=== PATIENT | female | born 1985 ===

== ENCOUNTER 2020-04-12 10:00 | Outpatient (CLI) | payer MEDICAID | END 2020-04-12 10:01 | disposition home or self-care (01) | LOC: SLR 10:00 | PROVIDERS: ATTEND Internal Medicine Critical Care Medicine | DX: G47.33 Obstructive sleep apnea (adult) (pediatric) (principal); R40.0 Somnolence; E66.9 Obesity, unspecified | CPT/HCPCS: G0399 ==

== ENCOUNTER 2020-05-30 11:00 | Outpatient (CLI) | payer MEDICAID | END 2020-05-31 11:00 | disposition home or self-care (01) | LOC: SLR 11:00 | PROVIDERS: ATTEND Internal Medicine Critical Care Medicine | DX: G47.33 Obstructive sleep apnea (adult) (pediatric) (principal) | CPT/HCPCS: 95810 ==